=== PATIENT | female | born 1975 | race Caucasian/White ===

== ENCOUNTER → 2016-12-23 | Outpatient (CLI) | payer BC ==
[~2016-12-23] MED LIST: CELEXA20 MG PO
== END ==
LOC: LAB 08:13
DX: E03.4 Atrophy of thyroid (acquired) (principal)

== ENCOUNTER → 2017-03-20 | Outpatient (CLI) | payer BC ==
[2012-05-21 15:34] VITALS: BP 123/80
== END ==
LOC: LAB 14:33
DX: E03.8 Other specified hypothyroidism (principal)

== ENCOUNTER → 2018-04-19 | Outpatient (CLI) | payer OTHER ==
[2012-05-21 15:34] VITALS: BP 123/80
== END ==
LOC: LAB 14:29
DX: E03.9 Hypothyroidism, unspecified (principal)

== ENCOUNTER → 2018-06-01 | Outpatient (CLI) | payer OTHER ==
[2012-05-21 15:34] VITALS: BP 123/80
== END ==
LOC: RAD 05-26 16:00
DX: E03.9 Hypothyroidism, unspecified (principal); E04.2 Nontoxic multinodular goiter

== ENCOUNTER → 2019-06-07 | Outpatient (CLI) | payer OTHER ==
[2012-05-21 15:34] VITALS: BP 123/80
== END ==
LOC: LAB 14:23
DX: E03.9 Hypothyroidism, unspecified (principal)

== ENCOUNTER → 2020-05-28 | Outpatient (CLI) | payer OTHER ==
[2012-05-21 15:34] VITALS: BP 123/80
== END ==
LOC: LAB 10:23
DX: E03.9 Hypothyroidism, unspecified (principal)

== ENCOUNTER → 2021-02-20 | Outpatient (CLI) | payer OTHER ==
[2012-05-21 15:34] VITALS: BP 123/80
== END ==
LOC: LAB 08:51
DX: F90.0 Attention-deficit hyperactivity disorder, predominantly inattentive type (principal); F34.1 Dysthymic disorder

== ENCOUNTER → 2021-02-26 | Outpatient (CLI) | payer OTHER ==
[2012-05-21 15:34] VITALS: BP 123/80
[2021-02-26 16:44] LABS: TOTAL PROTEIN 7.1 g/dL (6.4-8.3)
[2021-02-26 16:46] LABS: TOTAL BILIRUBIN 0.3 mg/dL (0.2-1.2)
[2021-02-26 16:50] LABS: DIRECT BILIRUBIN 0.2 mg/dL (0.0-0.5)
== END ==
LOC: LAB 16:22
PROVIDERS: Dermatology MOHS-Micrographic Surgery
DX: Z79.899 Other long term (current) drug therapy (principal)

== ENCOUNTER → 2021-03-28 | Outpatient (CLI) | payer OTHER ==
[2021-03-28 15:22] LABS: ALBUMIN 3.6 g/dL (3.5-5.0)
[2021-03-28 15:25] LABS: TOTAL PROTEIN 6.5 g/dL (6.4-8.3)
[2021-03-28 15:30] LABS: DIRECT BILIRUBIN 0.1 mg/dL (0.0-0.5)
[2021-03-28 15:32] LABS: TOTAL BILIRUBIN 0.1 mg/dL (0.2-1.2)
== END ==
LOC: LAB 14:15
PROVIDERS: Dermatology MOHS-Micrographic Surgery
DX: Z79.899 Other long term (current) drug therapy (principal)

== ENCOUNTER → 2021-08-16 | Outpatient (CLI) | payer OTHER | LOC: LAB 08:30 | DX: J02.9 Acute pharyngitis, unspecified (principal); Z20.822 Contact with and (suspected) exposure to COVID-19 ==